=== PATIENT | male | born 1985 | race African-American/Black ===

== ENCOUNTER 2020-01-12 04:43 | Emergency (ER) | payer MEDICAID ==
[~2020-01-12] VITALS: Ht 185.4 cm; Wt 86.0 kg
[2020-01-12] MEDS ORDERED: IBUPROFEN 600MG TABLET PO ONE (05:15)
[2020-01-12] MEDS ORDERED: IBUPROFEN 600MG TABLET ONE (05:18)
[2020-01-12] MEDS ORDERED: ACETAMINOPHEN 325MG TABLET PO ONE (05:30)
[2020-01-12] MEDS ORDERED: IBUPROFEN 600MG TABLET PO NR (05:30)
[2020-01-12 05:31] LABS: CHLORIDE 106 mEq/L (98-107)
[2020-01-12 05:34] LABS: BASOPHILS % 0.9 % (0.0-2.0); EOSINOPHILS % 1.6 % (0.0-5.0); HEMATOCRIT. 40.7 % (42.0-52.0); HEMOGLOBIN. 14.2 g/dL (14.0-18.0); LYMPHOCYTES % 21.1 % (20.0-50.0); MEAN CORPUSCULAR HEMOGLOBIN 31.5 pg (28.0-32.0); MEAN CORPUSCULAR VOLUME 90.6 fL (80.0-94.0); MEAN PLATELET VOLUME 7.9 fl (7.4-10.4); MONOCYTES % 6.2 % (2.0-8.0); NEUTROPHILS % 70.2 % (40.0-76.0); PLATELET 179 x1000/uL (130-400); RED CELL DISTRIBUTION WIDTH 13.2 % (11.6-14.6)
[2020-01-12 05:35] LABS: ETHANOL BLOOD < 10 mg/dL
[2020-01-12 05:39] LABS: CREATINE KINASE 245 IU/L (39-308)
[2020-01-12] MEDS ORDERED: LORAZEPAM 0.5MG TABLET PO ONE (06:00)
[2020-01-12 06:04] LABS: *AMPHETAMINES SCREEN URINE NEGATIVE (NEGATIVE); *BARBITURATES SCREEN URINE NEGATIVE (NEGATIVE); *BENZODIAZEPINES SCREEN URINE NEGATIVE (NEGATIVE); *COCAINE SCREEN URINE NEGATIVE (NEGATIVE); METHADONE URINE SCREEN NEGATIVE (NEGATIVE)
[2020-01-12 06:05] LABS: CANNABINOID URINE SCREEN NEGATIVE (NEGATIVE); OPIATES URINE SCREEN PRESUMTIVE POSITIVE (NEGATIVE); PHENCYCLIDINE URINE SCREEN NEGATIVE (NEGATIVE)
[2020-01-12 06:14] LABS: CLARITY URINE CLEAR (CLEAR); COLOR URINE YELLOW (YELLOW); KETONES URINE NEGATIVE (NEGATIVE); LEUKOCYTE ESTERASE URINE NEGATIVE (NEGATIVE); NITRITE URINE NEGATIVE (NEGATIVE); OCCULT BLOOD URINE NEGATIVE (NEGATIVE); PROTEIN URINE NEGATIVE (NEGATIVE); SPECIFIC GRAVITY URINE 1.003 (1.005-1.030); UROBILINOGEN URINE 0.2 E.U./dL (0.2-1.0)
[2020-01-12 08:25] VITALS: BP 110/68
== END 2020-01-12 08:25 | disposition home or self-care (01) ==
LOC: ER 04:43
DX: R07.89 Other chest pain (principal)
CPT/HCPCS: 36415; 71045; 80053; 80305; 80320; 81003; 82550; 84484; 85025; 93005; 99285; G0480

== ENCOUNTER 2024-01-05 15:14 | Emergency (ER) | payer MEDICAID, OTHER ==
[~2024-01-05] VITALS: Ht 188 cm; Wt 82.0 kg
[2024-01-05 15:16] VITALS: O2SAT 98
[2024-01-05 16:00] LABS: BASOPHILS % 0.6 % (0.0-2.0); EOSINOPHILS % 1.1 % (0.0-5.0); HEMATOCRIT. 41.7 % (42.0-52.0); HEMOGLOBIN. 14.1 g/dL (14.0-18.0); LYMPHOCYTES % 20.4 % (20.0-50.0); MEAN CORPUSCULAR HEMOGLOBIN 30.7 pg (28.0-32.0); MEAN CORPUSCULAR HGB CONC 33.8 g/dL (31.0-37.0); MEAN CORPUSCULAR VOLUME 90.7 fL (80.0-94.0); MEAN PLATELET VOLUME 8.5 fl (7.4-10.4); MONOCYTES % 6.3 % (2.0-8.0); NEUTROPHILS % 71.6 % (40.0-76.0); PLATELET 183 x1000/uL (130-400); RED CELL DISTRIBUTION WIDTH 13.4 % (11.6-14.6); WHITE BLOOD COUNT 5.7 x1000/uL (4.5-11.0)
[2024-01-05 16:07] LABS: CHLORIDE 106 mEq/L (98-107); POTASSIUM 3.6 mEq/L (3.5-5.1); SODIUM 138 mEq/L (136-145)
[2024-01-05 16:08] LABS: CALCIUM 9.7 mg/dL (8.7-10.4); CARBON DIOXIDE 25 mEq/L (21-32)
[2024-01-05 16:13] LABS: CREATININE 1.1 mg/dL (0.6-1.3); GLUCOSE 98 mg/dL (70-105); UREA NITROGEN BLOOD 7 mg/dL (9-23)
[2024-01-05 16:26] LABS: TROPONIN I HIGH SENSITIVITY < 4 ng/L (3.0-53)
[2024-01-05] MEDS: IBUPROFEN 600MG TABLET PO ONE (16:49)
[2024-01-05 16:55] VITALS: BP 114/69; PULSE 62; RESP 16; TEMP 98.4
== END 2024-01-05 18:35 | disposition home or self-care (01) ==
LOC: ER 15:14
DX: G56.33 Lesion of radial nerve, bilateral upper limbs (principal); F41.9 Anxiety disorder, unspecified; F15.10 Other stimulant abuse, uncomplicated
CPT/HCPCS: 36415; 71045; 80048; 84484; 85025; 93005; 99285

== ENCOUNTER 2024-03-03 10:22 | Emergency (ER) | payer MEDICAID, OTHER ==
[~2024-03-03] VITALS: Ht 193 cm; Wt 99.8 kg
[2024-03-03 10:26] VITALS: O2SAT 100
[2024-03-03] MEDS: LORAZEPAM 0.5MG TABLET PO ONE (11:08)
[2024-03-03] MEDS ORDERED: LORA2TAB95 MT (11:28)
[2024-03-03 11:50] VITALS: BP 126/83; PULSE 75; RESP 18; TEMP 97.9
== END 2024-03-03 11:55 | disposition home or self-care (01) ==
LOC: ER 10:22
DX: F41.9 Anxiety disorder, unspecified (principal); F15.10 Other stimulant abuse, uncomplicated
CPT/HCPCS: 71045; 73030; 99284